=== PATIENT | female | born 1995 | race African-American/Black ===

== ENCOUNTER 2016-04-01 02:45 | Emergency (ER) | payer MEDICAID ==
[~2016-04-01] VITALS: Ht 157.5 cm; Wt 62.7 kg
[~2016-04-01 02:45] MED LIST: IBUP-1827 PO
[2016-04-01 02:46] VITALS: BP 120/74; PULSE 100; RESP 16; O2SAT 100
--- NOTE | 2016-04-01 02:57 | ED.REPORT ---
HPI-Back Pain Under 40 Date of Service Apr 01, 2016 ED Provider: Ector Leroy MD Patient is a 21 year old female with chronic back pain who presents to the ED complaining of increased back pain that began 1 week ago, worse in severity tonight. She localizes her pain to her mid back, with radiation towards her arms. She states that this pain is making it difficulty for her to breathe and that she awoke from sleep this morning due to her pain. The patient also states that she had some intermittent numbness of her right arm and that she awoke from sleep several days ago with swelling in her right lower leg. Patient also admits to neck pain. Patient denies urinary or bowel incontinence. She denies a history of scoliosis. She drove herself to the ED tonight. Nursing Notes Stated Complaint: BACK PAIN Chief Complaint: Back Pain or Injury Nursing Notes Reviewed: Yes Allergies: Coded Allergies: No Known Allergies (Verified Allergy, Unknown, 04/01/16) Scheduled Methocarbamol (Robaxin-750) 750 Mg Tablet 750 MG PO QID Methocarbamol (Robaxin-750) 750 Mg Tablet 750 MG PO QID Scheduled PRN Ibuprofen (Ibuprofen) 600 Mg Tablet 600 MG PO Q6H PRN PRN For Mild Pain Naproxen (Naprosyn) 500 Mg Tablet 500 MG PO BID PRN PRN For Pain Tramadol (Tramadol) 50 Mg Tablet 100 MG PO Q6H PRN PRN For Pain General Time Seen by MD: 02:57 Chief Complaint Back pain Hx Obtained From: Patient Arrived By: Walk-in Sudden in Onset?: No Onset Occurred: 1 week ago Symptom Duration: Since onset Quality: Painful Severity: Current: Moderate Severity: Maximum: Severe Recent Healthcare: No recent doctor visit, No recent hospitalization Similar Sx Previous: Yes Past Medical History Past Medical History chronic back pain Past Surgical History Pt denies Family History Reviewed, not relevant Smoking History Never Smoker Social History Alcohol Use: Denies alcohol use Drug Use: Denies drug use Other Social History: Good social support, Lives with children, Local resident Ambulatory Status Independent Review of Systems Respiratory: Reports: Shortness of breath Musculoskeletal: Reports: Back pain, Extremity pain, Extremity swelling Neurologic: Reports: Numbness, Denies: Bladder dysfunction, Bowel dysfunction Complete sys rev & neg: except as marked. Physical Exam Initial Vital Signs Vital Signs (First) Date Time Temp Pulse Resp B/P Pulse Ox O2 Delivery O2 Flow Rate FiO2 04/01/16 02:46 36.4 100 16 120/74 100 Room Air Initial VS: Reviewed Head / Eyes: Atraumatic, Normocephalic, PERRL ENT: Conjunctiva normal, No scleral icterus Neck: Supple, Full range of motion Abdomen / GI: Soft, Non-tender Skin: Warm, Dry, No cyanosis Psychiatric: Mood/affect normal, Behavior normal, Normal thought content General/Constitutional: Awake, Alert, No acute distress Back: No midline vertebral tend Flank / Spine / Paraspinal: Positive: Thorac paraspinal tend... Muscle Spasm / ROM: Positive: Trapezius tender R Guarded stance and gait, holding herself with with the left hip elevated and the right hip down. She is unable to straighten. Mildly induced scoliosis due to muscle spasm. Neurologic: Oriented X3, Speech NL, No motor deficits, No sensory deficits Neck: Supple, No midline vertebral tend Neck / Muscle Tenderness: Positive: Paraspinal L..., Paraspinal R... Respiratory / Chest: No respiratory distress, No stridor Cardiovascular: Heart rate NL, Cap refill not delayed Lower Extremity / Pelvis / MS: No swelling, No deformity, Neurologic intact, Vascular intact Upper Extremity / MS: No swelling, No deformity, Neurologic intact, Vascular intact Interpretation & Diagnostics Lab Results Interpretation Test 04/01/16 03:00 Urine Color Yellow (YELLOW) Urine Appearance Hazy (CLEAR,HAZY) Urine pH 7.0 (5.0-8.0) Urine Specific [place] 1.015 (1.003-1.035) Urine Protein Negativemg/dL (NEG,TRACE) Urine Glucose (UA) Negativemg/dL (NEGATIVE) Urine Ketones Negativemg/dL (NEGATIVE) Urine Occult Blood Negative (NEGATIVE) Urine Nitrite Negative (NEGATIVE) Urine Bilirubin Negative (NEGATIVE) Urine Urobilinogen Normalmg/dL (NORMAL) Urine Leukocyte Esterase Negative (NEGATIVE) Urine RBC 0-2/hpf (0-2) Urine WBC 0-5/hpf (0-5) Urine Epithelial Cells Many/hpf (NONE-MOD) Urine Crystals None seen (NONE SEEN) Urine Bacteria None/hpf (NONE-FEW) Urine Hyaline Casts None/lpf (NONE) Urine Granular Casts None seen (NONE SEEN) Urine Waxy Casts None seen (NONE SEEN) Urine Red Blood Cell Casts None seen (NONE SEEN) Urine White Blood Cell Casts None seen (NONE SEEN) Urine Mucus None seen (None Seen) Urine Trichomonas None seen (NONE SEEN) Urine Yeast None (NONE SEEN) Urine Culture Reflexed Not indicated X-Ray Interpretation Study Performed: X-ray C-spine Interpretation / Wet Read by: Wet read ED physician Interpretation: Normal exam, No fracture/dislocation Xray Interpretation: Impression: Positional scoliosis due to muscle spasm. No acute fracture or process. Study Performed: Thoracolumbar Spine X-ray Interpretation / Wet Read by: Wet read ED physician Re-Eval/Medical Decision Med Decision/Clinical Course 21-year-old with no trauma history presents with worsening back pain over several weeks. She has tender muscles to palpation, mild spasm induced scoliosis, and symptoms suggesting intermittent radiculopathy in the right arm. X-rays are unrevealing. Improved here after Toradol and Decadron and methocarbamol. Home with tramadol and Naprosyn and methocarbamol and plan for follow-up with PCP in physical therapy referral. Source of Hx: Old records Re-Evaluation/Progress : Time of Eval: 04:45 Patient Status: Condition improved Re-Evaluation/Progress Note: X-rays did not show any acute process. This is due to muscle spasm. Patient understands and agrees with the plan to be discharged home. Discharge instructions and follow-up discussed. All questions were addressed. Return to the ED warnings given. Counseled Regarding: Diagnosis, Need for follow-up, When/why to return to ED Discharge & Departure Impression: Primary Impression: Lumbosacral strain Encounter type: initial encounter Qualified Code: S39.012A - Strain of muscle, fascia and tendon of lower back, initial encounter Additional Impressions: Strain of thoracic region Encounter type: initial encounter Qualified Code: S29.019A - Strain of muscle and tendon of unspecified wall of thorax, initial encounter Cervical radiculopathy Disposition: Home All VS Reviewed: Yes Condition: Stable Patient Instructions: Cervical Radiculopathy (ED), Acute Low Back Pain (ED) Additional Instructions: Your x-ray shows some spasm and curvature of her spine due to the spasm, but no bony abnormality and no fracture or tumor. Begin Naprosyn twice daily. Begin methocarbamol four times daily. Begin tramadol four times daily if needed additionally for pain. Follow-up with your doctor in the office. Call today for follow-up later today or early next week. Sleep in a soft cervical collar to protect your neck posture. Heat to the area can be helpful. Referrals: Zafar Hicks MD (PCP) [facility] Attestation Portions of this note were transcribed by Danica Ge. I, Dr. Leroy personally performed the history, physical exam and medical decision-making; I reviewed and confirmed the accuracy of the information in the transcribed note. Signed by: Jenny Orozco, 04/01/2016 0446 copies to: Zafar Hicks MD, Christopher W MD Apr 01, 2016 02:56 Danica Ge Apr 01, 2016 03:07
[2016-04-01] MEDS ORDERED: Dexamethasone 20 mg/2 mL Oral Solution PO ONE (03:05)
[2016-04-01] MEDS ORDERED: Ketorolac 30 mg/mL 2 mL Inj IM ONE (03:05)
[2016-04-01 03:18] LABS: APPEARANCE,URINE HAZY (CLEAR,HAZY); COLOR,URINE YELLOW (YELLOW); OCCULT BLOOD,URINE NEGATIVE (NEGATIVE); UROBILINOGEN,URINE NORMAL (NORMAL)
[2016-04-01] MEDS ORDERED: METH-313 PO (04:34)
[2016-04-01] MEDS ORDERED: NAPR500T PO (04:34)
[2016-04-01] MEDS ORDERED: TRAM50TA2 PO (04:34)
[2016-04-01 04:47] VITALS: PULSE 79; RESP 16; O2SAT 100
--- NOTE | 2016-04-01 09:03 | DRSVH ---
PROCEDURE: X-RAY THORACOLUMBAR SPINE, 2 VIEWS INDICATIONS: worsening pain x 3 weeks TECHNIQUE: 2 views acquired of the thoracolumbar spine. COMPARISON: None. FINDINGS: Bones: No acute fractures or dislocations. Visualized inferior ribs appear intact. No suspicious b augusto lesions. Soft tissues: No suspicious soft tissue calcifications. IMPRESSION: Minimal rightward curvature of the mid lumbar spine otherwise normal exam. Dictated by: Juanjo Henriquez RR Interpreted: Henna Gonzales MD on 04/01/2016 at 9:03 Transcribed by: CALOS on 04/01/2016 at 9:03 Approved by: Henna Gonzales MD, PhD on 04/01/2016 at 16:45
--- NOTE | 2016-04-01 09:04 | DRSVH ---
PROCEDURE: X-RAY CERVICAL SPINE, 2 OR 3 VIEWS INDICATIONS: worsening pain x 3 weeks TECHNIQUE: 3 view(s) of the cervical spine were acquired. COMPARISON: None. FINDINGS: Bones: No fractures or dislocations to the T1 level. The lateral masses of C1 appear intact on the odontoid view. No suspicious bony lesions. Soft tissues: No prevertebral soft tissue swelling. IMPRESSION: Normal cervical spine series. Dictated by: Juanjo Henriquez RR Interpreted: Henna Gonzales MD on 04/01/2016 at 9:03 Transcribed by: CALOS on 04/01/2016 at 9:04 Approved by: Henna Gonzales MD, PhD on 04/01/2016 at 16:45
== END 2016-04-01 04:47 | disposition home or self-care (01) ==
LOC: SED 02:45
DX: S39.012A Strain of muscle, fascia and tendon of lower back, initial encounter (principal); S29.019A Strain of muscle and tendon of unspecified wall of thorax, initial encounter; M54.12 Radiculopathy, cervical region; X58.XXXA Exposure to other specified factors, initial encounter; Y92.9 Unspecified place or not applicable; Y93.9 Activity, unspecified; Y99.9 Unspecified external cause status
CPT/HCPCS: 72040; 72080; 81000; 96372; 99284; J1885

== ENCOUNTER 2016-09-17 12:00 | Emergency (ER) | payer MEDICAID ==
[~2016-09-17] VITALS: Ht 157.5 cm; Wt 58.0 kg
[~2016-09-17 12:00] MED LIST changes: +METH-313 PO; +NAPR500T PO; +TRAM50TA2 PO
[2016-09-17 12:01] VITALS: BP 138/99; PULSE 91; RESP 17; O2SAT 99
[2016-09-17] MEDS ORDERED: Ondansetron 2 mg/mL 2 mL Inj IVPUSH ONE (12:15)
[2016-09-17] MEDS ORDERED: 0.9% Sodium Chloride 1,000 ML IV ONE ×2 (12:15→14:55)
--- NOTE | 2016-09-17 12:15 | ED.REPORT ---
HPI-Abd Pain F Under 40 Date of Service Sep 17, 2016 ED Provider: Kayla Jamison History of Present Illness: 21-year-old female nausea vomiting and diarrhea since 6:00 AM today, 6 hours. Multiple episodes of severe vomiting and diarrhea throughout the day today . Abd pain onset yesterday but it was tolerable and she was able to eat. Ate subway sandwhich last noc. No fever. Let us menstrual period started 2 days ago. Last sexual activity was one month ago. No Vaginal discharge. No Urinary complaints. Nursing Notes Stated Complaint: ABDOMINAL PAIN Chief Complaint: Female Abdominal Pain Nursing Notes Reviewed: Yes Allergies: Coded Allergies: No Known Allergies (Verified Allergy, Unknown, 04/01/16) Scheduled Methocarbamol (Robaxin-750) 750 Mg Tablet 750 MG PO QID Methocarbamol (Robaxin-750) 750 Mg Tablet 750 MG PO QID Scheduled PRN Ibuprofen (Ibuprofen) 600 Mg Tablet 600 MG PO Q6H PRN PRN For Mild Pain Naproxen (Naprosyn) 500 Mg Tablet 500 MG PO BID PRN PRN For Pain Ondansetron ODT (Zofran ODT) 4 Mg Tablet 4 MG PO Q4H PRN PRN For Nausea Tramadol (Tramadol) 50 Mg Tablet 100 MG PO Q6H PRN PRN For Pain General Time Seen by MD: 12:07 Chief Complaint Abdominal pain, Diarrhea severe, Nausea, Vomiting severe Hx Obtained From: Patient Arrived By: Walk-in Sudden in Onset?: Yes Onset Occurred: 5 - 8 hours ago Symptom Duration: Constant Progression since Onset: Constant Location: : Diffuse Severity: Current: Severe Severity: Maximum: Severe Recent Healthcare: No recent doctor visit Similar Sx Previous: No Past Medical History Past Medical History Notes: otherwise healthy Past Medical History chronic back pain Past Surgical History Pt denies Family History Reviewed, not relevant Smoking History Never Smoker Social History Alcohol Use: Denies alcohol use Drug Use: Denies drug use Other Social History: Good social support, Lives with children, Local resident Ambulatory Status Independent Review of Systems Basic Review of Systems Eyes: Vision NL, No discharge ENT: Hearing NL, No pain, No nasal congestion, No pharyngeal pain Allergy / Immune: No allergy Neurologic: NL mental status, No weakness, No numbness Psychiatric: Normal thought content Constitutional: Denies: Chills, Fatigue, Fever Respiratory: Denies: Dyspnea on exertion Cardiovascular: Denies: Chest pain GI: Reports: Abdominal pain, Diarrhea, Nausea, Vomiting Complete sys rev & neg: except as marked. Physical Exam Initial Vital Signs Vital Signs (First) Date Time Temp Pulse Resp B/P Pulse Ox O2 Delivery O2 Flow Rate FiO2 09/17/16 12:01 36.8 91 17 138/99 99 Room Air Initial VS: Reviewed, Vital signs normal General/Constitutional: Awake, Alert Respiratory / Chest: Breath sounds NL, Breath sounds = bilat, No respiratory distress, No rales, No rhonchi, No wheezing Cardiovascular: Heart rate NL, Regular rhythm, Heart sounds NL, Peripheral circulation NL Abdomen: Atraumatic, Soft, No guarding, No rebound, BS normoactive, No distention, No hernia, No palpable mass, No pulsatile mass Tenderness/Guarding/Rebound: Positive: Tender diffuse Skin: Atraumatic, Color NL, No rash Interpretation & Diagnostics Interpretation & Diagnostics: PROCEDURE: CT ABDOMEN AND PELVIS WITH CONTRAST ([id number]) INDICATIONS: abd pain, vomiting TECHNIQUE: After the administration of intravenous contrast, 5 mm thick sections acquired from the diaphragm to the symphysis. 5 mm coronal and sagittal reformats were acquired. For radiation dose reduction, the following was used: automated exposure control, adjustment of mA and/or kV according to patient size. COMPARISON: None. FINDINGS: Image quality: Excellent. ABDOMEN: Lung bases: Lung bases are clear. Heart size is normal. Solid organs: Liver and spleen are normal in size and enhancement. Gallbladder is normal. Biliary system is non dilated. Pancreas enhances normally. No adrenal nodules. Kidneys demonstrate normal size and enhancement, without hydronephrosis. Peritoneum and bowel: Appendix is not definitively identified. There is no inflammatory stranding in the right lower quadrant to suggest acute appendicitis. Fluid-filled small intestine is noted. There is an air-fluid level in the presacral region, probably in the distal sigmoid colon/rectum. Bowel loops demonstrate normal wall thickness and caliber. No free fluid or air. Nodes and vessels: No retroperitoneal or mesenteric adenopathy by size criteria. Aorta and inferior vena cava are normal in size. Miscellaneous: No ventral hernias. PELVIS: Genitourinary: Bladder wall thickness is normal. Uterus is unremarkable. There is a 2.9 by 1.5 cm left ovarian cyst. No pathological free fluid in cul-de-sac. Miscellaneous: No inguinal hernias or adenopathy. Bones: No suspicious bony lesions. No vertebral body compression fractures. IMPRESSION: 1. In the absence of oral contrast, this study is suboptimal. No CT findings to explain vomiting. 2. Fluid filled small intestine, which is a non-specific finding and could be secondary to enteritis. Clinical correlation suggested. 3. There is an air-fluid level in the presacral region, probably within the distal sigmoid colon/rectum. If there is clinical concern for perirectal abscess, CT pelvis with rectal contrast may be considered. 4. Nonvisualization of appendix. No CT evidence for acute appendicitis. Dictated by: Nilson Franklin M.D. on 09/17/2016 at 16:01 Approved by: Nilson Franklin M.D. on 09/17/2016 at 16:09 Lab Results Interpretation Result Diagram: 09/17/16 1229 09/17/16 1344 Test 09/17/16 12:29 09/17/16 13:44 09/17/16 14:30 White Blood Count 14.5th/mm3 (3.8-10.1) Red Blood Count 4.95mil/mm3 (3.90-5.20) Hemoglobin 15.7g/dL (12.0-15.6) Hematocrit 46.5% (35.0-46.0) Mean Corpuscular Volume 93.9fL (81-100) Mean Corpuscular Hemoglobin 31.7pg (27.0-35.0) Mean Corpuscular Hemoglobin Concent 33.8% (32.0-37.0) Red Cell Distribution Width 12.7% (12.3-15.4) Platelet Count 261bil/L (150-400) Neutrophils (%) (Auto) 85.8% (40-74) Lymphocytes (%) (Auto) 8.4% (14-46) Monocytes (%) (Auto) 5.0% (4-12) Eosinophils (%) (Auto) 0.6% (0-5) Basophils (%) (Auto) 0.1% (0-3) Sodium Level 140mEq/L (134-144) Potassium Level 3.8mEq/L (3.5-5.2) Chloride Level 104mEq/L (97-108) Carbon Dioxide Level 20mmol/L (18-29) Blood Urea Nitrogen 12mg/dL (6-20) Creatinine 0.57mg/dL (0.57-1.00) Estimat Glomerular Filtration Rate 172mL/min (>59) Glucose Level 88mg/dL (60-99) Calcium Level 9.4mg/dL (8.5-10.1) Total Bilirubin 0.5mg/dL (0.0-1.2) Aspartate Amino Transf (AST/SGOT) 23U/L (0-50) Alanine Aminotransferase (ALT/SGPT) 19U/L (0-32) Alkaline Phosphatase 74U/L (25-150) Total Protein 8.3g/dL (6.4-8.4) Albumin 4.6g/dL (3.4-5.0) Lipase 15U/L (13-60) Urine Color Yellow (YELLOW) Urine Appearance Clear (CLEAR,HAZY) Urine pH 5.5 (5.0-8.0) Urine Specific [place] 1.030 (1.003-1.035) Urine Protein Tracemg/dL (NEG,TRACE) Urine Glucose (UA) Negativemg/dL (NEGATIVE) Urine Ketones Negativemg/dL (NEGATIVE) Urine Occult Blood Large (NEGATIVE) Urine Nitrite Negative (NEGATIVE) Urine Bilirubin Negative (NEGATIVE) Urine Urobilinogen Normalmg/dL (NORMAL) Urine Leukocyte Esterase Negative (NEGATIVE) Urine RBC 0-2/hpf (0-2) Urine WBC 0-5/hpf (0-5) Urine Epithelial Cells Few/hpf (NONE-MOD) Urine Crystals None seen (NONE SEEN) Urine Bacteria Few/hpf (NONE-FEW) Urine Hyaline Casts None/lpf (NONE) Urine Granular Casts None seen (NONE SEEN) Urine Waxy Casts None seen (NONE SEEN) Urine Red Blood Cell Casts None seen (NONE SEEN) Urine White Blood Cell Casts None seen (NONE SEEN) Urine Mucus Present (None Seen) Urine Trichomonas None seen (NONE SEEN) Urine Yeast None (NONE SEEN) Urinalysis Comment None Urine Culture Reflexed Not indicated Re-Eval/Medical Decision Med Decision/Clinical Course Med Decision/Clinical Course: 1445- pt awaiting ct scan. Abdominal pain now 7 out of 10 down from a 10 out of 10. Patient has not had any further emesis since being here she has not had any diarrhea either. 1630- Dr. Aguilera consulted and saw patient at the bedside. Discussed that this is likely a gastroenteritis. Considered ovarian torsion and other pelvic etiologies, but low likelihood given her symptoms of diarrhea and vomiting. Discussed this with patient and she will return if she is not improving. Patient states she is ready to go, discussed red flags, and will be discharged home with a prescription for Zofran. Discharge & Departure Shift Change Sign-Out Laboratory Evaluation: Lab evaluation discussed Imaging Studies: Imaging discussed Procedures: Results discussed Response to Therapy: Improved Primary Impression: Gastroenteritis and colitis, viral Disposition: Home Discharge Condition All VS Reviewed: Yes Condition: Stable Patient Instructions: Gastroenteritis (ED) Additional Instructions: Use your nausea medicine that was prescribed here today as needed. Clear Liquid diet as tolerated gradually advancing to easily digested solids like crackers and bread as tolerated. Return immediately if fevers, worsening pain, lightheadedness fatigue or any other concerning symptom. Follow-up with your PCP in 2 days. Referrals: Zafar Hicks MD (PCP) EDSupervising Provider for APC: Ruperto Aguilera MD Attending Statment I saw the patient with the [employer]. I agree with the plan and findings as documented above. Discussed careful return precautions with the patient at length. She is agreeable to the plan and would like to be discharged home without further intervention at this time. This seems reasonable given the above. copies to: Zafar Hicks MD; Ruperto Aguilera MD, Linnea K [facility] Sep 17, 2016 12:15 Ruperto Aguilera MD Sep 17, 2016 16:38
[2016-09-17 12:43] LABS: BASOPHILS % (AUTO) 0.1 % (0-3); EOSINOPHILS % (AUTO) 0.6 % (0-5); Mean Corpuscular Hemoglobin 31.7 pg (27.0-35.0); Mean Corpuscular Volume 93.9 fL (81-100); NEUTROPHILS % (AUTO) 85.8 % (40-74); Platelet Count 261 bil/L (150-400)
[2016-09-17 15:13] LABS: APPEARANCE,URINE CLEAR (CLEAR,HAZY); COLOR,URINE YELLOW (YELLOW); OCCULT BLOOD,URINE LARGE (NEGATIVE); PH,URINE 5.5 (5.0-8.0); UROBILINOGEN,URINE NORMAL (NORMAL)
[2016-09-17 15:34] VITALS: BP 111/57; PULSE 83; RESP 16; O2SAT 100
[2016-09-17] MEDS ORDERED: MetoCLOpramide 5 mg/mL 2 mL Inj IVPUSH PRN (16:00)
--- NOTE | 2016-09-17 16:11 | DRSVH ---
PROCEDURE: CT ABDOMEN AND PELVIS WITH CONTRAST ([id number]) INDICATIONS: abd pain, vomiting TECHNIQUE: After the administration of intravenous contrast, 5 mm thick sections acquired from the diaphragm to the symphysis. 5 mm coronal and sagittal reformats were acquired. For radiation dose reduction, the following was used: automated exposure control, adjustment of mA and/or kV according to patient siz e. COMPARISON: None. FINDINGS: Image quality: Excellent. ABDOMEN: Lung bases: Lung bases are clear. Heart size is normal. Solid organs: Liver and spleen are normal in size and enhancement. Gallbladder is normal. Biliary system is non dilated. Pancreas enhances normally. No adrenal nodules. Kidneys demonstrate normal size and enhancement, without hydronephrosis. Peritoneum and bowel: Appendix is not definitively identified. There is no inflammatory stranding in the right lower quadrant to suggest acute appendicitis. Fluid-filled small intestine is noted. There is an air-fluid level in the presacral region, probably in the distal sigmoid colon/rectum. Bowel lo ops demonstrate normal wall thickness and caliber. No free fluid or air. Nodes and vessels: No retroperitoneal or mesenteric adenopathy by size criteria. Aorta and inferior vena cava are normal in size. Miscellaneous: No ventral hernias. PELVIS: Genitourinary: Bladder wall thickness is normal. Uterus is unremarkable. There is a 2.9 by 1.5 cm l eft ovarian cyst. No pathological free fluid in cul-de-sac. Miscellaneous: No inguinal hernias or adenopathy. Bones: No suspicious bony lesions. No vertebral body compression fractures. IMPRESSION: 1. In the absence of oral contrast, this study is suboptimal. No CT findings to explain vomiting. 2. Fluid filled small intestine, which is a non-specific finding and could be secondary to enteritis. Clinical correlation suggested. 3. There is an air-fluid level in the presacral region, probably within the distal sigmoid colon/rect um. If there is clinical concern for perirectal abscess, CT pelvis with rectal contrast may be consid ered. 4. Nonvisualization of appendix. No CT evidence for acute appendicitis. Dictated by: Nilson Franklin M.D. on 09/17/2016 at 16:01 Approved by: Nilson Franklin M.D. on 09/17/2016 at 16:09
[2016-09-17] MEDS ORDERED: ONDA4TAB9 PO (16:31)
[2016-09-17 17:02] VITALS: BP 128/84; PULSE 86; RESP 18; O2SAT 99
== END 2016-09-17 17:04 | disposition home or self-care (01) ==
LOC: SED 12:00
DX: A08.4 Viral intestinal infection, unspecified (principal)
CPT/HCPCS: 36415; 74177; 80053; 81000; 81002; 81025; 83690; 85025; 96374; 96375; 99285; J2405; J2765; J7030; Q9967